=== PATIENT | female | born 1960 | race Caucasian/White ===

== ENCOUNTER 2017-12-17 06:48 | Day surgery (SDC) | payer OTHER ==
[2017-12-16 11:38] VITALS: BMI 38.6
[2017-12-17] MEDS ORDERED: Ketorolac Tromethamine 30 MG/ML VIAL ONE ×2 (07:26→08:36)
[2017-12-17] MEDS ORDERED: CEFAZOLIN/Water 2 GM/20 ML SYRINGE ONE (07:26)
[2017-12-17] MEDS ORDERED: Scopolamine 1.5 mg/72 hour Patch ONE (07:33)
[2017-12-17] MEDS ORDERED: Bupivacaine/Epinephrine 0.25% 30 ML VIAL ONE (08:40)
[2017-12-17] MEDS ORDERED: Fentanyl 100 MCG/2 ML VIAL ONE ×2 (09:14)
[2017-12-17] MEDS ORDERED: Midazolam HCl 2 mg/2 ml Vial ONE (09:14)
[2017-12-17] MEDS ORDERED: Albuterol Sulfate HFA (OR ONLY) ONE (09:39)
[2017-12-17] MEDS ORDERED: Ondansetron HCl/PF 4 MG/2 ML Vial ONE (09:54)
[2017-12-17] MEDS ORDERED: diphenhydrAMINE 50 MG/ML VIAL ONE (09:54)
[2017-12-17] MEDS ORDERED: Dexamethasone 20 MG/5 ML VIAL ONE (09:54)
[2017-12-17] MEDS ORDERED: Metoprolol Tartrate 5 MG/5 ML VIAL ONE (09:54)
[2017-12-17] MEDS ORDERED: Glycopyrrolate 0.2 MG/ML 5 ML SYRINGE ONE (09:54)
[2017-12-17] MEDS ORDERED: PROVENTIL INHALER 6.7 G (200 INHALATIONS) ONE (09:54)
[2017-12-17] MEDS ORDERED: Lidocaine 1% PF 5 ML VIAL ONE (09:54)
[2017-12-17] MEDS ORDERED: PROPOFOL 200 MG/20 ML VIAL ONE (09:54)
[2017-12-17] MEDS ORDERED: Esmolol 100 MG/10 ML VIAL ONE (09:54)
--- NOTE | 2017-12-17 13:35 | OP ---
DATE OF PROCEDURE: 12/17/2017 PREOPERATIVE DIAGNOSES: Umbilical hernia and ventral hernia above the umbilicus midline, obesity. POSTOPERATIVE DIAGNOSES: Umbilical hernia and ventral hernia above the umbilicus midline, obesity. PROCEDURE: Robotic repair of umbilical and supraumbilical ventral midline hernia with reinforcement with 10-cm round Ventralight mesh. SURGEON: Donovan Presley M.D. ANESTHESIA: General. Local 0.5% Marcaine with epinephrine, 30 mL. PROCEDURE IN DETAIL: The patient was taken to the operating room where under general anesthesia, Fol ey catheter was placed at the beginning of the procedure and removed at the end. Abdomen was prepare d with ChloraPrep, draped in routine fashion. Local anesthetic infiltrated into the skin and subcuta neous tissue about the port sites. Right lateral subcostal incision made and pneumoperitoneum to 15 mmHg obtained with the Veress needle, replacing with 8 mm port. A subxiphoid incision made to the le ft of midline and a 11 mm balloon port placed. Video laparoscope inserted. Left lateral stab incisi on made and an 8 mm port placed. Robot was docked, connected to the ports, calibrated and robotic he rnia repair undertaken. Falciform ligament in the midline fatty tissue taken down towards the hernia defect where there was incarcerated omentum and a small amount of bowel. This was carefully reduced into the abdominal cavity, decompressing the hernia. Fascial defect identified. Preperitoneal fat dissected free from the abdominal wall as well as the falciform ligament to accommodate the mesh. Th ere was an umbilical hernia defect just inferior to this in the midline and this was dissected free, reducing contents, reducing the preperitoneal fat using cautery, energy source of hot scissors roboti yessica to accomplish this. The defects were measured and then mesh selected and mesh and sutures intr oduced intra-abdominally. The pneumoperitoneum reduced to 10 mmHg. Fascia closed, the umbilical her alfredo fascia as well as the ventral hernia fascia above that, closed with continuous suture of number 1 V-Loc suture. Once this was accomplished, the mesh was then placed with the viscerally coated side against the viscera, secured to the abdominal wall circumferentially with continuous suture of 2-0 V -Loc suture. Artie removed and all counts were correct. Pneumoperitoneum reduced. All skin incis ions closed with continuous subcuticular 4-0 Monocryl and DermaGlue applied. The patient tolerated t he procedure well.
[2017-12-17] MEDS ORDERED: Acetaminophen 500 MG TAB ONE (14:10)
== END 2017-12-17 15:15 | disposition home or self-care (01) ==
LOC: SDC 06:48
PROVIDERS: ATTEND Specialist
PROC: 0WUF4JZ Supplement Abdominal Wall with Synthetic Substitute, Percutaneous Endoscopic Approach (ICD-10-PCS; principal; 2017-12-17)
DX: K42.0 Umbilical hernia with obstruction, without gangrene (principal); K43.9 Ventral hernia without obstruction or gangrene; E66.9 Obesity, unspecified; Z68.38 Body mass index [BMI] 38.0-38.9, adult
CPT/HCPCS: C1781; J0131; J1100; J1200; J1885; J2001; J2250; J2405; J2704; J3010

== ENCOUNTER 2018-04-22 07:58 | Outpatient (CLI) | payer OTHER ==
--- NOTE | 2018-04-22 10:32 | BD ---
DEXA BONE DENSITY: HISTORY: A 57-year-old female. Screening study. COMPARISON: 06/12/2008 FINDINGS: DEXA BONE DENSITY HISTORY: A 73-year-old female. Postmenopausal screening. COMPARISON: None. FINDINGS: LUMBAR SPINE BMD (g/cm2) T-SCORE Z-SCORE L1 0.961 -0.3 0.7 L2 1.194 1.5 2.6 L3 1.185 0.9 2.1 L4 1.026 -0.3 0.9 TOTAL 1.085 0.3 1.5 On 06/12/2008, 1.058 and 0.1. BMD change versus baseline 2.5%. BMD change versus previous 2.5%. BMD (g/cm2) T-SCORE Z-SCORE FEMORAL NECK 0.857 0.1 1.2 TOTAL FEMUR 1.172 1.9 2.6 On 06/12/2008, 0.951 and 0.1. BMD change versus baseline 23.2%. BMD change versus previous 23.2%. IMPRESSION: 1. Lumbar spine World Health Organization (WHO) classification is normal. Fracture risk not increas ed. 2. Femoral neck World Health Organization (WHO) classification is normal. FRAX is not reported dmitri use all T-scores are at or above -1.0. POS: BELKIS
== END 2018-04-22 07:59 | disposition home or self-care (01) ==
LOC: BICMAMMO 07:58 → EDSTATUS 08:30
DX: Z78.0 Asymptomatic menopausal state (principal); M19.90 Unspecified osteoarthritis, unspecified site
CPT/HCPCS: 77080

== ENCOUNTER 2018-05-04 08:31 | Outpatient (CLI) | payer OTHER ==
[2018-05-04] MEDS ORDERED: Gadobenate Dimeglumine 529 MG/1 ML (20ML VIAL) ONE (09:00)
--- NOTE | 2018-05-04 13:56 | MRI ---
MRI RIGHT LOWER EXTREMITY WITH AND WITHOUT CONTRAST: INDICATIONS: Concern for palpable cyst. TECHNIQUE: Multiplanar, multisequence MR images were obtained of the right knee with and without contrast, and 2 0 mL of MultiHance was utilized. The patient could not remember the region of the cyst. The physici an reported it within the mediolateral aspect of the knee. FINDINGS: The patient does have a small semimembranosus/medial gastrocnemius popliteal cyst. No cystic abnorma lity seen along the lateral aspect of the knee. The MCL is intact. The field of view on the exam limits detail of the knee anatomy. There are moderate marginal osteophytes affecting the major compartments of the knee, predominantly a ffecting the medial femorotibial and lateral femorotibial compartments. There is a suspected radial flap tear involving the central posterior horn and posterior root of the medial meniscus, with a disp laced flap seen anterior to the posterior horn on image 26 of series 9. There is medial extrusion of the meniscus. There is also a suspected horizontally oriented tear involving the body of the medial meniscus. The lateral meniscus appears intact. The ACL, PCL, LCLC, and extensor mechanism are intact. There are subchondral cyst-like abnormalities involving the posterior aspect of the tibial plateau. There is mild varicosity involving the saphenous vein, along the medial aspect of the knee. This may correspond to the palpable abnormality. No lymphadenopathy is evident. No abnormal enhancement is grossly evident. IMPRESSION: 1. Moderate osteoarthrosis of the right knee. 2. Medial meniscal tear. 3. Small Srinivasan's cyst. 4. Mild varicosity involving the saphenous vein, along the medial aspect of the right knee, which ma y correspond to the palpable abnormality. POS: LUCÍA
== END 2018-05-04 08:32 | disposition home or self-care (01) ==
LOC: SCSMRI 08:31
PROVIDERS: ATTEND Orthopaedic Surgery
DX: M25.861 Other specified joint disorders, right knee (principal); M17.11 Unilateral primary osteoarthritis, right knee; S83.241A Other tear of medial meniscus, current injury, right knee, initial encounter; M71.21 Synovial cyst of popliteal space [Baker], right knee; I83.91 Asymptomatic varicose veins of right lower extremity
CPT/HCPCS: A9577

== ENCOUNTER 2019-06-18 10:03 | Emergency (ER) | payer SELFPAY ==
[2019-06-18] MEDS ORDERED: Clindamycin/D5W 900 mg/50 ml Premix Bag ONE (10:49)
[2019-06-18 10:51] LABS: #Eosinphils 0.3 thou/uL (0.0-0.7); #Lymphocytes 2.3 thou/uL (1.20-3.40); #Monocytes 0.8 thou/uL (0.11-0.59); #Neutrophils 9.8 thou/uL (1.40-6.50); %Basophils 0.3 % (0.0-1.0); %Eosinophils 2.6 % (0.0-10.0); %Lymphocytes 17.1 % (21.0-51.0); %Monocytes 5.8 % (0.0-10.0); %Neutrophils 74.2 % (42.0-75.0); Hemoglobin 12.6 g/dL (12.0-16.0); Mean Corpuscular HGB CONC 32.8 g/dL (32.0-36.0); Mean Corpuscular Hemoglobin 32.9 pg (27.0-31.0); Mean Platelet Volume 11.1 fL (7.4-10.4); Platelet Count 221 thou/uL (130-400); RBC Distribution Width 11.6 % (11.5-14.5); Red Blood Cell (RBC) Count 3.82 mill/uL (4.20-5.40); White Blood Cell (WBC) Count 13.2 thou/uL (4.8-10.8)
[2019-06-18 11:00] LABS: ALT (SGPT) 17 U/L (8-55); AST (SGOT) 15 U/L (5-34); Albumin 3.5 g/dL (3.5-5.0); Alkaline Phosphatase 102 U/L (40-110); Anion Gap 12 mmol/L (10-20); BUN (Urea Nitrogen) 11 mg/dL (9.8-20.1); Bilirubin, Total 0.3 mg/dL (0.2-1.2); Calc. Creatinine Clearance 0 mL/min (70-130); Calcium 8.9 mg/dL (7.8-10.44); Carbon Dioxide 26 mmol/L (22-29); Chloride 108 mmol/L (98-107); Estimated GFR-MDRD Greater than 90; Globulin 2.8 g/dL (2.4-3.5); Glucose 83 mg/dL (70-105); Potassium 3.7 mmol/L (3.5-5.1); Protein, Total 6.3 g/dL (6.0-8.3); Sodium 142 mmol/L (136-145)
[2019-06-18] MEDS ORDERED: Lidocaine 1% w/Epinephrine 1:100K 20 ML VIAL ONE (11:21)
--- NOTE | 2019-06-18 13:34 | CON ---
DATE OF CONSULTATION: 06/18/2019 CONSULTING PHYSICIAN: Dmitry West MD REASON FOR CONSULTATION: Left buttock abscess. HISTORY OF PRESENT ILLNESS: The patient is a 58-year-old white female. She gives a history of having had a small infection on her left buttock that began about 5 days ago. It progressed in size and pain until yesterday. It ruptured and began leaking. She states that between yesterday and today, it has substantially increased in size and discoloration. She presented to the emergency room. Due to the size of the lesion, surgical consultation was requested. PAST MEDICAL HISTORY: Depression, hypothyroidism. PAST SURGICAL HISTORY: Robotic umbilical hernia repair, hysterectomy, repair of ankle fracture. MEDICATIONS: 1. Wellbutrin. 2. Levothyroxine. PERSONAL AND SOCIAL HISTORY: She is single with 2 children. 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 REVIEW OF SYSTEMS: Otherwise, unremarkable. FAMILY HISTORY: Noncontributory. PHYSICAL EXAMINATION: VITAL SIGNS: She is afebrile. Vital signs are within normal limits. GENERAL: She is a well-developed, well-nourished, pleasant white female, resting in the emergency room in no acute distress. Her friend is present at bedside. She is alert and oriented x3. HEAD, EYES, EARS, NOSE, AND THROAT: Unremarkable. NECK: Supple. LUNGS: Clear to auscultation. CARDIAC: Regular rate and rhythm without murmur. ABDOMEN: Soft, nontender, nondistended. BUTTOCKS: On her left mid buttock, is a large indurated erythematous area. The area of erythema is approximately 4 cm in diameter. The induration extends a couple of centimeters out beyond this. There is a punctate opening in the center of this through which is draining purulent/bloody fluid. The entire area is indurated and tender. LABORATORY DATA: White blood cell count is elevated at 13.2, hemoglobin is 12.6. Chemistries unremarkable. ASSESSMENT: The patient with left buttock abscess. PLAN: Incision and drainage. I recommend proceeding with this at bedside here in the emergency room. Job ID: [id number]
--- NOTE | 2019-06-18 13:35 | OP ---
DATE OF PROCEDURE: 06/18/2019 PREOPERATIVE DIAGNOSIS: Left buttock abscess. POSTOPERATIVE DIAGNOSIS: Left buttock abscess. OPERATION PERFORMED: Incision and drainage of left buttock abscess. ANESTHESIA: 1% lidocaine with epinephrine. INDICATIONS: The patient is a 58-year-old white female who presents with large left buttock abscess. DESCRIPTION OF PROCEDURE: Informed consent was obtained. The patient was placed in the right lateral decubitus position. Left buttock was prepped with Betadine and locally anesthetized with 1% lidocaine with epinephrine. The cavity was probed with a hemostat and the skin overlying the abscess cavity was incised. An elliptical incision was created to ellipse out the devitalized tissue over the center of this. I broke down all loculations and debrided all nonviable/necrotic tissue. The wound was thoroughly scrubbed with peroxide gauze. The defect when completed was 4 cm x 2 cm and extended inwards at least 2 cm. The wound was packed with peroxide moistened gauze and dry gauze was placed externally. Her friend was instructed in wound care. The patient was given a prescription for Bactrim (empirically) and tramadol for discomfort and instructed daily dressing changes. She will follow up in my office in 1 week. She was given my card and asked to call me if there are any problems or questions. Job ID: [id number]
== END 2019-06-18 12:00 | disposition home or self-care (01) ==
LOC: ERS 10:03
DX: L02.31 Cutaneous abscess of buttock (principal)
CPT/HCPCS: 10060; 36415; 80053; 85025; 87070; 87077; 87186; 87205; 96365; J3490

== ENCOUNTER 2021-02-28 00:42 | Inpatient (IN) | payer SELFPAY ==
[2021-02-28] MEDS ORDERED: Aspirin Chewable 81 MG TAB ONE (01:15)
[2021-02-28 01:35] LABS: #Basophils 0.1 thou/uL (0.0-0.2); #Eosinphils 0.3 thou/uL (0.0-0.7); #Lymphocytes 3.9 thou/uL (1.20-3.40); #Monocytes 0.4 thou/uL (0.11-0.59); #Neutrophils 4.1 thou/uL (1.40-6.50); %Basophils 1.3 % (0.0-1.0); %Eosinophils 3.6 % (0.0-10.0); %Lymphocytes 43.8 % (21.0-51.0); %Monocytes 4.6 % (0.0-10.0); %Neutrophils 46.8 % (42.0-75.0); Mean Corpuscular HGB CONC 33.9 g/dL (32.0-36.0); Mean Corpuscular Hemoglobin 34.1 pg (27.0-31.0); Mean Platelet Volume 11.2 fL (7.4-10.4); Platelet Count 168 thou/uL (130-400); RBC Distribution Width 11.8 % (11.5-14.5); Red Blood Cell (RBC) Count 4.68 mill/uL (4.20-5.40); White Blood Cell (WBC) Count 8.8 thou/uL (4.8-10.8)
[2021-02-28 02:15] LABS: ALT (SGPT) 33 U/L (8-55); AST (SGOT) 29 U/L (5-34); Albumin 4.1 g/dL (3.5-5.0); Alkaline Phosphatase 101 U/L (40-110); Anion Gap 12 mmol/L (10-20); BUN (Urea Nitrogen) 22 mg/dL (9.8-20.1); Bilirubin, Total 0.4 mg/dL (0.2-1.2); Calc. Creatinine Clearance 0 mL/min (70-130); Calcium 9.7 mg/dL (7.8-10.44); Carbon Dioxide 28 mmol/L (22-29); Chloride 104 mmol/L (98-107); Globulin 2.8 g/dL (2.4-3.5); Glucose 113 mg/dL (70-105); Potassium 4.1 mmol/L (3.5-5.1); Protein, Total 6.9 g/dL (6.0-8.3); Sodium 140 mmol/L (136-145)
[2021-02-28] MEDS ORDERED: Furosemide 40 MG/4 ML VIAL ONE (03:45)
[2021-02-28 04:29] LABS: SARS-CoV-2 NAA Rapid Test Not Detected (NotDetected)
[2021-02-28 05:47] LABS: Troponin I Less than 0.010 ng/mL (< 0.028)
[2021-02-28] MEDS ORDERED: Ondansetron ODT 4 MG TAB PO PRN (05:52)
[2021-02-28] MEDS ORDERED: Ondansetron PF 4 MG/2 ML Vial IVP PRN (05:52)
[2021-02-28] MEDS ORDERED: Acetaminophen 650 MG Suppository PR PRN (05:52)
[2021-02-28 06:07] VITALS: BMI 29.7
[2021-02-28 07:19] LABS: Magnesium 2.2 mg/dL (1.6-2.6)
[2021-02-28] MEDS: Aspirin 81 mg Enteric Coated Tablet PO SCH (08:09)
[2021-02-28 08:21] LABS: Troponin I Less than 0.010 ng/mL (< 0.028)
[2021-02-28] MEDS ORDERED: Carvedilol 3.125 MG TAB PO SCH (09:00)
[2021-02-28] MEDS ORDERED: Furosemide 40 MG/4 ML VIAL SLOW IVP SCH ×2 (09:00→16:15)
[2021-02-28] MEDS ORDERED: Iopamidol 370 76% 100 ML VIAL ONE (09:46)
[2021-02-28 12:06] LABS: Anion Gap 13 mmol/L (10-20); BUN (Urea Nitrogen) 19 mg/dL (9.8-20.1); Calc. Creatinine Clearance 117 mL/min (70-130); Calcium 9.8 mg/dL (7.8-10.44); Carbon Dioxide 33 mmol/L (22-29); Chloride 102 mmol/L (98-107); Glucose 104 mg/dL (70-105); Magnesium 2.2 mg/dL (1.6-2.6); Potassium 3.9 mmol/L (3.5-5.1); Sodium 144 mmol/L (136-145)
[2021-02-28] MEDS ORDERED: FLU VACC QS2021-22(6MOS UP)/PF 60 MCG/0.5 ML SYRINGE IM ONE (13:15)
[2021-02-28] MEDS ORDERED: Prevnar 13-Val Conj/PF 0.5 ML SYRINGE IM ONE (13:15)
[2021-02-28] MEDS ORDERED: Diltiazem 125 MG in Sodium Chloride 0.9% 100 ML IVPB SCH (16:15)
[2021-02-28] MEDS: Enoxaparin Sodium 80 MG/0.8 ML SYRINGE SC SCH (20:02)
[2021-03-01 04:38] LABS: #Basophils 0.1 thou/uL (0.0-0.2); #Eosinphils 0.4 thou/uL (0.0-0.7); #Lymphocytes 3.5 thou/uL (1.20-3.40); #Monocytes 0.6 thou/uL (0.11-0.59); #Neutrophils 5.2 thou/uL (1.40-6.50); %Basophils 0.9 % (0.0-1.0); %Eosinophils 4.1 % (0.0-10.0); %Lymphocytes 35.6 % (21.0-51.0); %Monocytes 6.2 % (0.0-10.0); %Neutrophils 53.1 % (42.0-75.0); Hemoglobin 17.2 g/dL (12.0-16.0); Mean Corpuscular HGB CONC 32.9 g/dL (32.0-36.0); Mean Corpuscular Hemoglobin 32.9 pg (27.0-31.0); Mean Corpuscular Volume 99.9 fL (78.0-98.0); Mean Platelet Volume 11.1 fL (7.4-10.4); Platelet Count 187 thou/uL (130-400); RBC Distribution Width 11.9 % (11.5-14.5); Red Blood Cell (RBC) Count 5.22 mill/uL (4.20-5.40); White Blood Cell (WBC) Count 9.7 thou/uL (4.8-10.8)
[2021-03-01 04:52] LABS: Anion Gap 12 mmol/L (10-20); BUN (Urea Nitrogen) 30 mg/dL (9.8-20.1); Calc. Creatinine Clearance 89 mL/min (70-130); Calcium 9.4 mg/dL (7.8-10.44); Carbon Dioxide 37 mmol/L (22-29); Chloride 98 mmol/L (98-107); Glucose 116 mg/dL (70-105); Potassium 3.9 mmol/L (3.5-5.1); Sodium 143 mmol/L (136-145)
[2021-03-01] MEDS ORDERED: Furosemide 40 MG/4 ML VIAL SLOW IVP SCH ×2 (06:00→13:15)
[2021-03-01] MEDS: Enoxaparin Sodium 80 MG/0.8 ML SYRINGE SC SCH ×2 (09:55→20:34)
[2021-03-01] MEDS: Aspirin 81 mg Enteric Coated Tablet PO SCH (09:57)
[2021-03-01] MEDS: Furosemide 20 MG/2 ML VIAL SLOW IVP SCH (15:58)
[2021-03-01] MEDS: Metoprolol Tartrate 25 MG TAB PO SCH (20:34)
[2021-03-02 05:11] LABS: #Basophils 0.1 thou/uL (0.0-0.2); #Eosinphils 0.3 thou/uL (0.0-0.7); #Lymphocytes 4.4 thou/uL (1.20-3.40); #Monocytes 0.6 thou/uL (0.11-0.59); #Neutrophils 3.8 thou/uL (1.40-6.50); %Basophils 1.2 % (0.0-1.0); %Eosinophils 3.4 % (0.0-10.0); %Lymphocytes 47.9 % (21.0-51.0); %Monocytes 6.6 % (0.0-10.0); %Neutrophils 40.9 % (42.0-75.0); Hemoglobin 15.1 g/dL (12.0-16.0); Mean Platelet Volume 11.3 fL (7.4-10.4); Platelet Count 203 thou/uL (130-400); Red Blood Cell (RBC) Count 5.37 mill/uL (4.20-5.40); White Blood Cell (WBC) Count 9.2 thou/uL (4.8-10.8)
[2021-03-02] MEDS: Furosemide 20 MG/2 ML VIAL SLOW IVP SCH (05:19)
[2021-03-02 05:22] LABS: Anion Gap 13 mmol/L (10-20); BUN (Urea Nitrogen) 34 mg/dL (9.8-20.1); Calc. Creatinine Clearance 100 mL/min (70-130); Calcium 9.3 mg/dL (7.8-10.44); Carbon Dioxide 33 mmol/L (22-29); Chloride 98 mmol/L (98-107); Glucose 110 mg/dL (70-105); Potassium 3.3 mmol/L (3.5-5.1); Sodium 141 mmol/L (136-145)
[2021-03-02] MEDS ORDERED: Flecainide 50 MG TAB PO SCH (09:00)
[2021-03-02] MEDS: Enoxaparin Sodium 80 MG/0.8 ML SYRINGE SC SCH ×2 (09:17→21:17)
[2021-03-02] MEDS: Metoprolol Tartrate 25 MG TAB PO SCH ×2 (09:17→21:18)
[2021-03-02] MEDS: Aspirin 81 mg Enteric Coated Tablet PO SCH (09:17)
[2021-03-02] MEDS: Amiodarone 200 MG TAB PO SCH ×2 (09:18→21:16)
[2021-03-02] MEDS ORDERED: Potassium Chloride 20 MEQ TAB PO SCH (11:00)
[2021-03-02] MEDS: Lisinopril 2.5 MG TAB PO SCH (21:17)
[2021-03-03] MEDS: Aspirin 81 mg Enteric Coated Tablet PO SCH (09:05)
[2021-03-03] MEDS: Enoxaparin Sodium 80 MG/0.8 ML SYRINGE SC SCH ×2 (09:05→21:52)
[2021-03-03] MEDS: Amiodarone 200 MG TAB PO SCH ×2 (09:05→21:49)
[2021-03-03] MEDS: Furosemide 20 MG TAB PO SCH (09:05)
[2021-03-03] MEDS: Metoprolol Tartrate 25 MG TAB PO SCH (09:06)
[2021-03-03] MEDS ORDERED: Iopamidol 370 76% 100 ML VIAL ONE (09:26)
[2021-03-03] MEDS ORDERED: Lidocaine 1% (PF) 30 ML VIAL ONE (11:58)
[2021-03-03] MEDS ORDERED: Midazolam HCl 2 mg/2 ml Vial ONE (12:32)
[2021-03-03] MEDS ORDERED: Sodium Chloride 0.9% 200 ML IV PRN (12:59)
[2021-03-03] MEDS ORDERED: Sodium Chloride 0.9% 250 ML IV SCH (13:00)
[2021-03-03] MEDS: Acetaminophen 325 MG TAB PO PRN (14:17)
[2021-03-03] MEDS: Lisinopril 2.5 MG TAB PO SCH (21:50)
[2021-03-04] MEDS: Enoxaparin Sodium 80 MG/0.8 ML SYRINGE SC SCH (09:34)
[2021-03-04] MEDS: Furosemide 20 MG TAB PO SCH (09:34)
[2021-03-04] MEDS: Amiodarone 200 MG TAB PO SCH ×2 (09:34→21:53)
[2021-03-04] MEDS: Aspirin 81 mg Enteric Coated Tablet PO SCH (09:34)
[2021-03-04] MEDS: Acetaminophen 325 MG TAB PO PRN (10:21)
[2021-03-04] MEDS ORDERED: PROPOFOL 200 MG/20 ML VIAL ONE (14:26)
[2021-03-04] MEDS: Apixaban 5 MG TAB PO SCH (21:52)
[2021-03-05] MEDS: Amiodarone 200 MG TAB PO SCH ×2 (09:31→19:59)
[2021-03-05] MEDS: Aspirin 81 mg Enteric Coated Tablet PO SCH (09:31)
[2021-03-05] MEDS: Apixaban 5 MG TAB PO SCH ×2 (09:32→19:58)
[2021-03-05] MEDS: Furosemide 20 MG TAB PO SCH (09:32)
[2021-03-06] MEDS: Amiodarone 200 MG TAB PO SCH (09:07)
[2021-03-06] MEDS: Aspirin 81 mg Enteric Coated Tablet PO SCH (09:08)
[2021-03-06] MEDS: Apixaban 5 MG TAB PO SCH (09:08)
[2021-03-06] MEDS: Furosemide 20 MG TAB PO SCH (09:08)
[2021-03-06 18:15] VITALS: BP 131/60; TEMP 97.6
== END 2021-03-06 19:11 | disposition home or self-care (01) | DRG 287 ==
LOC: ERS 00:42 → 2NO 04:30 → ERHOLD 03-04 12:36 → 2NO 03-04 12:37
PROVIDERS: ADMIT Student in an Organized Health Care Education/Training Program; ATTEND Internal Medicine
PROC: 4A023N7 Measurement of Cardiac Sampling and Pressure, Left Heart, Percutaneous Approach (ICD-10-PCS; principal; 2021-03-03)
PROC: B2111ZZ Fluoroscopy of Multiple Coronary Arteries using Low Osmolar Contrast (ICD-10-PCS; 2021-03-03)
PROC: B2151ZZ Fluoroscopy of Left Heart using Low Osmolar Contrast (ICD-10-PCS; 2021-03-03)
PROC: 4A033BC Measurement of Arterial Pressure, Coronary, Percutaneous Approach (ICD-10-PCS; 2021-03-03)
PROC: B24BZZ4 Ultrasonography of Heart with Aorta, Transesophageal (ICD-10-PCS; 2021-03-03)
PROC: 5A2204Z Restoration of Cardiac Rhythm, Single (ICD-10-PCS; 2021-03-03)
DX: I50.21 Acute systolic (congestive) heart failure (principal); I42.8 Other cardiomyopathies; I42.0 Dilated cardiomyopathy; Z20.822 Contact with and (suspected) exposure to COVID-19; I48.91 Unspecified atrial fibrillation; F32.A Depression, unspecified; Z82.49 Family history of ischemic heart disease and other diseases of the circulatory system; Z90.710 Acquired absence of both cervix and uterus; Z88.5 Allergy status to narcotic agent; Z79.899 Other long term (current) drug therapy
CPT/HCPCS: 0240U; 36415; 71045; 71275; 80048; 80053; 83735; 83880; 84443; 84484; 85025; 92960; 93005; 93010; 93306; 93312; 93458; 93798; 96374; 96375; 99152; J1650; J1940; J2001; J2250; J2405; J2704; J3490; J7030; Q9967

== ENCOUNTER 2021-03-11 01:06 | Observation (INO) | payer SELFPAY ==
[2021-03-11 01:51] LABS: #Basophils 0.1 thou/uL (0.0-0.2); #Eosinphils 0.3 thou/uL (0.0-0.7); #Lymphocytes 3.7 thou/uL (1.20-3.40); #Monocytes 0.6 thou/uL (0.11-0.59); #Neutrophils 4.7 thou/uL (1.40-6.50); %Eosinophils 3.2 % (0.0-10.0); %Lymphocytes 39.6 % (21.0-51.0); %Neutrophils 50.3 % (42.0-75.0); Hemoglobin 16.1 g/dL (12.0-16.0); Mean Corpuscular HGB CONC 33.4 g/dL (32.0-36.0); Mean Corpuscular Hemoglobin 33.6 pg (27.0-31.0); Mean Platelet Volume 11.2 fL (7.4-10.4); Platelet Count 181 thou/uL (130-400); RBC Distribution Width 11.7 % (11.5-14.5); Red Blood Cell (RBC) Count 4.79 mill/uL (4.20-5.40); White Blood Cell (WBC) Count 9.3 thou/uL (4.8-10.8)
[2021-03-11 02:12] LABS: ALT (SGPT) 49 U/L (8-55); AST (SGOT) 25 U/L (5-34); Albumin 4.1 g/dL (3.5-5.0); Alkaline Phosphatase 94 U/L (40-110); Anion Gap 13 mmol/L (10-20); BUN (Urea Nitrogen) 23 mg/dL (9.8-20.1); Bilirubin, Total 0.5 mg/dL (0.2-1.2); Calc. Creatinine Clearance 0 mL/min (70-130); Calcium 9.3 mg/dL (7.8-10.44); Carbon Dioxide 27 mmol/L (22-29); Chloride 104 mmol/L (98-107); Globulin 3.1 g/dL (2.4-3.5); Glucose 99 mg/dL (70-105); Protein, Total 7.2 g/dL (6.0-8.3); Sodium 140 mmol/L (136-145)
[2021-03-11] MEDS ORDERED: Ondansetron ODT 4 MG TAB PO PRN (04:20)
[2021-03-11] MEDS ORDERED: Acetaminophen 650 MG Suppository PR PRN (04:20)
[2021-03-11] MEDS ORDERED: Ondansetron PF 4 MG/2 ML Vial IVP PRN (04:20)
[2021-03-11] MEDS ORDERED: Acetaminophen 325 MG TAB PO PRN (04:20)
[2021-03-11 04:48] VITALS: BMI 30.9
[2021-03-11 05:30] LABS: Troponin I Less than 0.010 ng/mL (< 0.028)
[2021-03-11] MEDS ORDERED: Furosemide 40 MG TAB ONE (08:43)
[2021-03-11] MEDS ORDERED: Metoprolol Tartrate 25 MG TAB ONE (08:44)
[2021-03-11] MEDS ORDERED: Morphine 4 MG/ML VIAL ONE (08:44)
[2021-03-11] MEDS: Furosemide 40 MG/4 ML VIAL SLOW IVP SCH ×2 (08:48→08:55)
[2021-03-11] MEDS ORDERED: Furosemide 40 MG/4 ML VIAL ONE ×3 (08:50→08:51)
[2021-03-11] MEDS ORDERED: Furosemide 40 MG/4 ML VIAL SLOW IVP SCH (09:00)
[2021-03-11] MEDS ORDERED: Apixaban 5 MG TAB PO SCH (09:00)
[2021-03-11] MEDS ORDERED: FLU VACC QS2021-22(6MOS UP)/PF 60 MCG/0.5 ML SYRINGE IM ONE (12:30)
[2021-03-11 14:31] LABS: SARS-CoV-2 PCR by NAA Not Detected (NotDetected)
[2021-03-11 15:29] VITALS: BP 134/85; TEMP 98
[2021-03-11 15:32] LABS: Troponin I Less than 0.010 ng/mL (< 0.028)
== END 2021-03-11 17:26 | disposition home or self-care (01) ==
LOC: ERS 01:06 → ERHOLD 03:40
PROVIDERS: ADMIT Student in an Organized Health Care Education/Training Program; ATTEND Physician Assistant Medical
DX: R06.00 Dyspnea, unspecified (principal); R07.89 Other chest pain; R00.1 Bradycardia, unspecified; I48.91 Unspecified atrial fibrillation; I50.20 Unspecified systolic (congestive) heart failure; I42.8 Other cardiomyopathies; Z20.822 Contact with and (suspected) exposure to COVID-19; Z88.5 Allergy status to narcotic agent
CPT/HCPCS: 36415; 71045; 80053; 83880; 84484; 85025; 93005; 96374; G0378; J1940; J2270; U0003; U0005